=== PATIENT | female | born 1950 | race Two or more races ===

== ENCOUNTER 2019-07-05 19:45 | Inpatient (IN) | payer OTHER ==
[~2019-07-05] VITALS: Ht 162.6 cm; Wt 68.5 kg
[2019-07-05 20:00] VITALS: BP 128/87
[2019-07-05] MEDS ORDERED: dilTIAZem HCl 25mg/5ml Inj IVP ONE (20:30)
[2019-07-05 20:54] LABS: ANION GAP 10 mmol/L (5-15); BLOOD UREA NITROGEN 16 mg/dL (7-18); CALCIUM 8.3 MG/DL (8.5-10.1); CARBON DIOXIDE 22 MMOL/L (21-32); CHLORIDE 104 MMOL/L (98-107); POTASSIUM 4.2 MMOL/L (3.5-5.1); SODIUM 136 MMOL/L (136-145)
[2019-07-05 20:55] LABS: BASOPHILS % (AUTO) 1.5 % (0.0-2.0); EOSINOPHILS % (AUTO) 2.5 % (0.0-3.0); HEMATOCRIT 35.9 % (37.0-47.0); HEMOGLOBIN 11.7 G/DL (12.0-16.0); LYMPHOCYTES % (AUTO) 29.7 % (20.0-45.0); MEAN CORPUSCULAR VOLUME 90 FL (80-99); MONOCYTES % (AUTO) 14.9 % (1.0-10.0); NEUTROPHILS % (AUTO) 51.4 % (45.0-75.0); PLATELET COUNT 190 K/UL (150-450); RED BLOOD COUNT 3.98 M/UL (4.20-5.40); RED CELL DISTRIBUTION WIDTH 13.3 % (11.6-14.8); WHITE BLOOD COUNT 5.6 K/UL (4.8-10.8)
[2019-07-05 20:57] LABS: INR 1.1 (0.9-1.1)
[2019-07-05] MEDS ORDERED: Enoxaparin 80mg Inj SUBQ ONE (21:00)
[2019-07-05 21:09] LABS: ALANINE AMINOTRANSFERASE 39 U/L (12-78); ALBUMIN 3.5 G/DL (3.4-5.0); ALBUMIN/GLOBULIN RATIO 1.1 (1.0-2.7); ALKALINE PHOSPHATASE 99 U/L (46-116); ASPARTATE AMINO TRANSFERASE 37 U/L (15-37); BILIRUBIN,TOTAL 0.3 MG/DL (0.2-1.0); CKMB 1.4 NG/ML (0.0-3.6); CREATINE KINASE 122 U/L (26-308)
[2019-07-05 21:10] LABS: APPEARANCE,URINE CLEAR; BILIRUBIN, URINE NEGATIVE (NEGATIVE); COLOR,URINE PALE YELLOW; GLUCOSE, URINE (UA) NEGATIVE (NEGATIVE); KETONES,URINE NEGATIVE (NEGATIVE); LEUKOCYTE ESTERASE ,URINE 1+ (NEGATIVE); NITRITE,URINE NEGATIVE (NEGATIVE); PH,URINE 5 (4.5-8.0); PROTEIN,URINE NEGATIVE (NEGATIVE); UROBILINOGEN,URINE NORMAL MG/DL (0.0-1.0)
--- NOTE | 2019-07-05 21:58 | Emergency Room Report ---
History of Present Illness General Chief Complaint: Dyspnea/Respdistress Source: Patient Present Illness HPI Patient presents with complaints of palpitations and shortness of breath Patient reports that on Friday she initially felt a palpitation sensation over the past several days now she has started to feel more short of breath especially with any exertion Denies any pain with this denies any fevers denies any vomiting or diarrhea patient takes drops for her glaucoma otherwise no other medication Denies any recent travel denies any Back or flank pain Allergies: Coded Allergies: No Known Allergies (Unverified , 07/05/19) Patient History Past Medical History: see triage record Reviewed Nursing Documentation: PMH: Agreed; PSxH: Agreed Nursing Documentation-PMH Past Medical History: No History, Except For Review of Systems All Other Systems: negative except mentioned in HPI Physical Exam Vital Signs Date Time Temp Pulse Resp B/P (MAP) Pulse Ox O2 Delivery O2 Flow Rate FiO2 07/05/19 20:00 97.9 94 18 128/87 (101) 97 Room Air Sp02 EP Interpretation: reviewed, normal General Appearance: mild distress - There is mildly short of breath Head: normocephalic, atraumatic Eyes: bilateral eye PERRL, bilateral eye EOMI ENT: hearing grossly normal, normal pharynx, TMs + canals normal, uvula midline Neck: full range of motion, supple, no meningismus, no bony tend Respiratory: no rhonchi, no respiratory distress, no retraction, no accessory muscle use, crackles - Fine crackles bilaterally Cardiovascular #1: no edema, no gallop, no JVD, no murmur, tachycardia, irregularly irregular Gastrointestinal: normal bowel sounds, non tender, soft, no mass, no organomegaly, non-distended, no guarding, no hernia, no pulsatile mass, no rebound Genitourinary: no CVA tenderness Musculoskeletal: normal inspection Neurologic: motor strength/tone normal, 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, oriented x3 , sensory intact, responsive Psychiatric: normal inspection, mood/affect normal Skin: no rash Lymphatic: normal inspection, no adenopathy Procedures Critical Care Time Critical Care Time 50 minutes for multiple re-evaluations initial critical presentation concerning for cardiopulmonary arrest and possible not including any procedural time Medical Decision Making Diagnostic Impression: Primary Impression: New onset a-fib Additional Impressions: Atrial fibrillation with RVR CHF (congestive heart failure) ER Course Patient is a fairly complex patient with multiple differential to consideration including but not limited to cardiac cardiopulmonary and vascular emergencies found to have new onset A. fib RVR The initial onset of this appears to be over 24 to 48 hours old Patient does not meet criteria for acute cardioversion is further anticoagulated IV hydration is held secondary to appearance of congestion secondary to the event Troponin is negative patient is initiated on Cardizem drip and will require ICU admission Labs Test 07/05/19 20:24 07/05/19 20:30 White Blood Count 5.6 K/UL (4.8-10.8) Red Blood Count 3.98 M/UL (4.20-5.40) Hemoglobin 11.7 G/DL (12.0-16.0) Hematocrit 35.9 % (37.0-47.0) Mean Corpuscular Volume 90 FL (80-99) Mean Corpuscular Hemoglobin 29.5 PG (27.0-31.0) Mean Corpuscular Hemoglobin Concent 32.7 G/DL (32.0-36.0) Red Cell Distribution Width 13.3 % (11.6-14.8) Platelet Count 190 K/UL (150-450) Mean Platelet Volume 7.8 FL (6.5-10.1) Neutrophils (%) (Auto) 51.4 % (45.0-75.0) Lymphocytes (%) (Auto) 29.7 % (20.0-45.0) Monocytes (%) (Auto) 14.9 % (1.0-10.0) Eosinophils (%) (Auto) 2.5 % (0.0-3.0) Basophils (%) (Auto) 1.5 % (0.0-2.0) Prothrombin Time 11.3 SEC (9.30-11.50) Prothromb Time International Ratio 1.1 (0.9-1.1) Activated Partial Thromboplast Time 25 SEC (23-33) Sodium Level 136 MMOL/L (136-145) Potassium Level 4.2 MMOL/L (3.5-5.1) Chloride Level 104 MMOL/L (98-107) Carbon Dioxide Level 22 MMOL/L (21-32) Anion Gap 10 mmol/L (5-15) Blood Urea Nitrogen 16 mg/dL (7-18) Creatinine 1.0 MG/DL (0.55-1.30) Estimat Glomerular Filtration Rate 54.8 mL/min (>60) Glucose Level 101 MG/DL (74-106) Calcium Level 8.3 MG/DL (8.5-10.1) Total Bilirubin 0.3 MG/DL (0.2-1.0) Aspartate Amino Transf (AST/SGOT) 37 U/L (15-37) Alanine Aminotransferase (ALT/SGPT) 39 U/L (12-78) Alkaline Phosphatase 99 U/L (46-116) Total Creatine Kinase 122 U/L (26-308) Creatine Kinase MB 1.4 NG/ML (0.0-3.6) Creatine Kinase MB Relative Index 1.1 Troponin I 0.001 ng/mL (0.000-0.056) Pro-B-Type Natriuretic Peptide 3168 pg/mL (0-125) Total Protein 6.8 G/DL (6.4-8.2) Albumin 3.5 G/DL (3.4-5.0) Globulin 3.3 g/dL Albumin/Globulin Ratio 1.1 (1.0-2.7) Lipase 143 U/L (73-393) Thyroid Stimulating Hormone (TSH) 1.302 uiU/mL (0.358-3.740) Free Thyroxine 1.54 NG/DL (0.76-1.46) Urine Color Pale yellow Urine Appearance Clear Urine pH 5 (4.5-8.0) Urine Specific [place] 1.015 (1.005-1.035) Urine Protein Negative (NEGATIVE) Urine Glucose (UA) Negative (NEGATIVE) Urine Ketones Negative (NEGATIVE) Urine Blood Negative (NEGATIVE) Urine Nitrite Negative (NEGATIVE) Urine Bilirubin Negative (NEGATIVE) Urine Urobilinogen Normal MG/DL (0.0-1.0) Urine Leukocyte Esterase 1+ (NEGATIVE) Urine RBC 0 /HPF (0 - 2) Urine WBC 0-2 /HPF (0 - 2) Urine Squamous Epithelial Cells Occasional /LPF Urine Bacteria Occasional /HPF (NONE) Lactic Acid Level 1.60 mmol/L (0.4-2.0) EKG Diagnostic Results Rate: tachycardiac Rhythm: other - afib ST Segments: other - Nonspecific ST changes Rhythm Strip Diag. Results EP Interpretation: yes Rate: 122 Rhythm: other - A. fib RVR, nonspecific ST changes Chest X-Ray Diagnostic Results Chest X-Ray Diagnostic Results : Chest X-Ray Ordered: Yes # of Views/Limited/Complete: 1 View Indication: Shortness of Breath EP Interpretation: Yes Interpretation: no pneumothorax, other - Right-sided effusion, pulmonary congestion Impression: Other - Acute pulmonary congestion Electronically Signed by: Cooper Bailey DO Last Vital Signs Date Time Temp Pulse Resp B/P (MAP) Pulse Ox O2 Delivery O2 Flow Rate FiO2 07/05/19 21:27 111 102/72 07/05/19 20:00 97.9 18 97 Room Air Status: improved Disposition: ADMITTED INPATIENT Condition: Critical Referrals: [facility] (PCP) Cooper Bailey DO Jul 05, 2019 21:58
[2019-07-05 22:00] VITALS: BP 104/80
[2019-07-06] VITALS (62 sets, daily range): BP systolic 71–139; BP diastolic 45–97
[2019-07-06] MEDS ORDERED: dilTIAZem HCl 25mg/5ml Inj IVP ONE (00:30)
[2019-07-06] MEDS: Metoprolol Tartrate 50mg tab ORAL SCH ×3 (00:44→20:05)
[2019-07-06 07:07] LABS: BASOPHILS % (AUTO) 1.3 % (0.0-2.0); EOSINOPHILS % (AUTO) 3.8 % (0.0-3.0); HEMATOCRIT 35.2 % (37.0-47.0); HEMOGLOBIN 11.6 G/DL (12.0-16.0); LYMPHOCYTES % (AUTO) 31.3 % (20.0-45.0); MEAN CORPUSCULAR VOLUME 90 FL (80-99); MONOCYTES % (AUTO) 16.9 % (1.0-10.0); NEUTROPHILS % (AUTO) 46.7 % (45.0-75.0); PLATELET COUNT 185 K/UL (150-450); RED BLOOD COUNT 3.89 M/UL (4.20-5.40); RED CELL DISTRIBUTION WIDTH 13.4 % (11.6-14.8); WHITE BLOOD COUNT 4.4 K/UL (4.8-10.8)
[2019-07-06 07:27] LABS: ALANINE AMINOTRANSFERASE 36 U/L (12-78); ALBUMIN 3.3 G/DL (3.4-5.0); ALBUMIN/GLOBULIN RATIO 0.9 (1.0-2.7); ALKALINE PHOSPHATASE 102 U/L (46-116); ANION GAP 12 mmol/L (5-15); ASPARTATE AMINO TRANSFERASE 32 U/L (15-37); BILIRUBIN,TOTAL 0.5 MG/DL (0.2-1.0); BLOOD UREA NITROGEN 14 mg/dL (7-18); CALCIUM 8.3 MG/DL (8.5-10.1); CARBON DIOXIDE 23 MMOL/L (21-32); CHLORIDE 108 MMOL/L (98-107); CREATININE 0.8 MG/DL (0.55-1.30); POTASSIUM 3.8 MMOL/L (3.5-5.1); SODIUM 142 MMOL/L (136-145)
[2019-07-06] MEDS: Eliquis 5mg tablet ORAL SCH ×2 (09:09→17:34)
--- NOTE | 2019-07-06 10:40 | Diagnostic Imaging Report ---
Indication: Chest pain Technique: One view of the chest Comparison: none Findings: There is mild bilateral perihilar interstitial congestion. The heart is borderline enlarged. Atelectatic changes are seen at the lung bases. The pleural spaces are grossly clear Impression: Borderline cardiomegaly Bilateral interstitial congestion
[2019-07-06] MEDS: dilTIAZem HCl 60mg tab ORAL SCH ×3 (12:32→23:39)
[2019-07-06] MEDS: Furosemide 40mg tab ORAL SCH ×2 (12:32→20:05)
--- NOTE | 2019-07-06 12:54 | Cardiology Report ---
APPROVED REPORT EXAM: Two-dimensional and M-mode echocardiogram with Doppler and color Doppler. M-Mode DIMENSIONS IVSd0.9 (0.7-1.1cm)Left Atrium (MM)4.5 (1.6-4.0cm) LVDd3.4 (3.5-5.6cm)Aortic Root3.8 (2.0-3.7cm) PWd1.0 (0.7-1.1cm)Aortic Cusp Exc.1.7 (1.5-2.0cm) IVSs1.2 cm LVDs2.6 (2.5-4.0cm) PWs0.9 cm Technically difficult study due to poor acoustical windows. Study quality precludes accurate assessment of regional wall motion. Normal left ventricular chamber size. Mild global left ventrricular hypokinesis . Left ventricular ejection fraction estimated to be 45-50 %. No evidence of left ventricular hypertrophy. No evidence of pericardial effusion. Mild left atrial enlargement . Right cardiac chamber sizes are within normal limits. Focal aortic valve sclerosis with adequate cusp excursion. Thickened mitral valve leaflets with normal excursion. Mitral annulus and aortic root calcification. Normal pulmonic valve structure. Normal tricuspid valve structure. IVC dilated at 2.3 cm without physiologic collapse suggestive of increased RA pressure. A color flow and spectral Doppler study was performed and revealed: Mild aortic insufficiency. Moderate mitral regurgitation. Mitral inflow velocities indicates possible pseudo normalization pattern implying moderately elevated left atrial pressure (Grade II ) Moderate tricuspid regurgitation. Tricuspid systolic velocities suggests peak right ventricular systolic pressure of 50-55 mmHg,consistent with moderate pulmonary hypertension.
--- NOTE | 2019-07-06 13:05 | Cardiology Report ---
APPROVED REPORT EKG Measurement Heart [id number] Atrial fibrillation with rapid ventricular response Nonspecific T wave abnormality Abnormal ECG
--- NOTE | 2019-07-06 16:45 | History and Physical Report ---
DATE OF ADMISSION: 07/05/2019 HISTORY OF PRESENT ILLNESS: This is a 69-year-old female with no known history presented to the hospital with new-onset AFib. The patient reports sensations of palpitations in the last several days. The patient takes unknown eyedrops for glaucoma. She has no recent travel history. No chest pain. She denies any recent illnesses. ALLERGIES: None. PAST HISTORY: Glaucoma only. PREVIOUS MEDICATIONS: Medications for glaucoma, eye drops only. SURGERIES: None. REVIEW OF SYSTEMS: Denies any headaches, hematemesis, melena, or hematochezia. PHYSICAL EXAMINATION: GENERAL: Reveals a 69-year-old female. HEENT: Unremarkable. LUNGS: Clear breath sounds bilaterally. HEART: Normal heart sounds. ABDOMEN: Soft. EXTREMITIES: There is no appreciable edema. The patient has an irregular heart rate and rhythm. VITAL SIGNS: Blood pressure 120/80, heart rate is 94, respirations are 20, she is afebrile. IMAGING: X-ray chest was obtained, which shows bilateral pulmonary congestion and cardiomegaly. LABORATORY DATA: Lab testing shows hemoglobin 11.6, otherwise normal CBC. BMP notable for normal beta. Troponin 0.001. ProBNP 3168. IMPRESSION: 1. New-onset CHF. 2. New-onset rapid AFib. DISCUSSION: 1. Admit to the ICU. 2. The patient will need IV Cardizem, which has been started by Cardiology. 3. Cardiology consult appreciated. 4. The patient also needs diuresis and anticoagulation. 5. We will follow carefully. Rl Posey M.D. DR: CONNER JOB#: [id number] CC:
[2019-07-06] MEDS ORDERED: Amiodarone 900 MG in D5W 500ml 482 ML IV SCH (18:15)
[2019-07-06] MEDS ORDERED: Lisinopril 10mg tab ORAL SCH (21:15)
--- NOTE | 2019-07-06 22:00 | Progress Note ---
DATE: 07/06/2019 CARDIOLOGY PROGRESS NOTE SUBJECTIVE: The patient remains in the intensive care unit. She has no chest pain or shortness of breath. She remains in atrial fibrillation. This morning, her diltiazem drip was decreased to 1 mg/hour and her heart rate increased. The staff was made aware that her oral therapy should be advanced before they should initiate a taper of the drip and therapy was implemented as such. Echocardiogram revealed ejection fraction of about 45% with global hypokinesis and significant degenerative valve disease with regurgitation and pulmonary hypertension. PHYSICAL EXAMINATION: NECK: Jugular venous pressure is slightly elevated. LUNGS: With few rales. CARDIAC: Irregularly irregular. Normal S1 and decreased S2 with a 2/6 holosystolic apical murmur. ABDOMEN: Soft. EXTREMITIES: There is no edema. LABORATORY DATA: White count 4.4, hemoglobin 11.6. Potassium 3.8, BUN 14, creatinine 0.8. Albumin 3.3. IMPRESSION: 1. Paroxysmal atrial fibrillation with rapid ventricular response. 2. Valvular cardiomyopathy. 3. Acute on chronic systolic and diastolic congestive heart failure. PLAN: 1. Diuresis. 2. Start angiotensin-converting enzyme inhibitor. 3. Continue full anticoagulation. 4. Initiate amiodarone drip once ventricular rate is controlled in an attempt to cardiovert back to sinus rhythm. Andreas Ovalles M.D. DR: ABI JOB#: [id number] CC:
--- NOTE | 2019-07-06 23:00 | Consultation ---
DATE OF CONSULTATION: 07/05/2019 CARDIOLOGY CONSULTATION CONSULTING PHYSICIAN: Andreas Ovalles M.D. REFERRING PHYSICIAN: Rl Posey M.D. REASON FOR CONSULTATION: Rapid atrial fibrillation. HISTORY OF PRESENT ILLNESS: This 69-year-old female with no prior cardiac history that she is aware of, presented to the emergency room with several days of palpitations and progressive shortness of breath. No chest pain, no recent illnesses, and no new medications noted. She has not had any recent travel and has not had any other changes in her lifestyle during this period. In the emergency room, she was noted to have rapid atrial fibrillation. The case was discussed with the emergency room physician following my consultation and the patient was started on medications for rate control and given anticoagulants for cardioembolic prophylaxis. Admission to the intensive care unit is planned. PAST MEDICAL HISTORY: Glaucoma. MEDICATIONS: Include eye drops. ALLERGIES: None. FAMILY HISTORY: Noncontributory. SOCIAL HISTORY: Negative for smoking, alcohol, or substance abuse. REVIEW OF SYSTEMS: A 10-point review of systems performed. All systems negative other than data outlined above. PHYSICAL EXAMINATION: GENERAL: Appears well developed and well nourished, in no distress. VITAL SIGNS: Blood pressure 135/84, pulse 142, and respirations 20. Afebrile. HEENT: Conjunctivae pink. Oropharynx clear. NECK: Supple. Jugular venous pressure is slightly elevated. LUNGS: Few rales bilaterally. CARDIAC: Irregularly irregular rhythm with rapid rate. Diminished S1, normal S2. 2/6 holosystolic apical murmur. ABDOMEN: Soft. EXTREMITIES: No edema. NEUROLOGIC: Nonfocal. LABORATORY DATA: Troponin is negative. Pro-natriuretic peptide is over 3000. Hemoglobin 11.6. Chemistry panel within normal limits. Chest x-ray, pulmonary venous congestion. EKG revealed atrial fibrillation, rapid ventricular response. Nonspecific ST-T wave change. IMPRESSION: 1. New-onset atrial fibrillation with rapid ventricular response. 2. Acute diastolic and possibly systolic congestive heart failure. 3. History of glaucoma. PLAN: 1. ICU monitoring. 2. Intravenous diltiazem and oral beta-hillary for rate control. 3. Full anticoagulation with apixaban for cardioembolic prophylaxis. 4. Once rate control is achieved, diuresis can be initiated. 5. Echocardiogram has been requested. 6. Followup troponin level will be obtained. 7. Further recommendations and care plan will follow once rate control is achieved and echocardiogram is reviewed. Andreas Ovalles M.D. DR: LAWSON JOB#: [id number] CC:
[2019-07-07] VITALS (35 sets, daily range): BP systolic 80–129; BP diastolic 45–81
[2019-07-07] MEDS: dilTIAZem HCl 60mg tab ORAL SCH (05:15)
[2019-07-07 05:51] LABS: BASOPHILS % (AUTO) 0.7 % (0.0-2.0); EOSINOPHILS % (AUTO) 2.2 % (0.0-3.0); HEMATOCRIT 35.5 % (37.0-47.0); HEMOGLOBIN 11.8 G/DL (12.0-16.0); LYMPHOCYTES % (AUTO) 23.5 % (20.0-45.0); MEAN CORPUSCULAR VOLUME 90 FL (80-99); MONOCYTES % (AUTO) 16.3 % (1.0-10.0); NEUTROPHILS % (AUTO) 57.3 % (45.0-75.0); PLATELET COUNT 186 K/UL (150-450); RED BLOOD COUNT 3.95 M/UL (4.20-5.40); RED CELL DISTRIBUTION WIDTH 13.3 % (11.6-14.8); WHITE BLOOD COUNT 4.9 K/UL (4.8-10.8)
[2019-07-07 06:14] LABS: ANION GAP 11 mmol/L (5-15); BLOOD UREA NITROGEN 15 mg/dL (7-18); CALCIUM 7.9 MG/DL (8.5-10.1); CARBON DIOXIDE 24 MMOL/L (21-32); CHLORIDE 101 MMOL/L (98-107); POTASSIUM 3.7 MMOL/L (3.5-5.1); SODIUM 136 MMOL/L (136-145)
[2019-07-07] MEDS: Eliquis 5mg tablet ORAL SCH ×2 (08:44→17:30)
[2019-07-07] MEDS: Metoprolol Tartrate 50mg tab ORAL SCH (09:00)
[2019-07-07] MEDS ORDERED: Furosemide 40mg tab ORAL SCH (09:00)
[2019-07-07] MEDS ORDERED: Lisinopril 10mg tab ORAL SCH (09:00)
--- NOTE | 2019-07-07 09:26 | Pulmonology Progress Note ---
Assessment/Plan Assessment/Plan IMPRESSION: 1. New-onset CHF. 2. New-onset rapid AFib. DISCUSSION: 1. Rate control 2. IV Cardizem, which has been started by Cardiology. 3. Cardiology consult appreciated. 4. The patient also needs diuresis and anticoagulation. 5. I will follow carefully. Rl Posey M.D. Subjective Interval Events: None new Constitutional: Reports: no symptoms HEENT: Repors: no symptoms Respiratory: Reports: no symptoms Cardiovascular: Reports: no symptoms Gastrointestinal/Abdominal: Reports: no symptoms Allergies: Coded Allergies: No Known Allergies (Unverified , 07/05/19) Objective Last 24 Hour Vital Signs Date Time Temp Pulse Resp B/P (MAP) Pulse Ox O2 Delivery O2 Flow Rate FiO2 07/07/19 09:00 86/52 07/07/19 09:00 57 86/52 07/07/19 08:00 97.9 71 12 96/57 (70) 96 07/07/19 07:30 84 15 111/72 (85) 98 07/07/19 07:00 62 17 110/71 (84) 97 07/07/19 06:30 83 19 111/68 (82) 95 07/07/19 06:00 85 13 120/75 (90) 96 07/07/19 05:30 87 21 126/74 (91) 96 07/07/19 05:15 86 112/75 07/07/19 05:00 86 17 112/75 (87) 97 07/07/19 04:30 83 17 113/72 (86) 98 07/07/19 04:00 Room Air 07/07/19 04:00 98.7 79 19 118/75 (89) 97 07/07/19 04:00 75 07/07/19 03:30 86 13 84/64 (71) 98 07/07/19 03:00 88 19 104/70 (81) 96 07/07/19 02:30 76 19 108/73 (85) 97 07/07/19 02:00 81 14 108/77 (87) 95 07/07/19 01:30 102 14 98/65 (76) 96 07/07/19 01:00 88 18 96/64 (75) 99 07/07/19 00:30 89 18 107/77 (87) 97 07/07/19 00:00 Room Air 07/07/19 00:00 79 07/07/19 00:00 99.0 91 24 129/74 (92) 98 07/06/19 23:39 77 130/79 07/06/19 23:30 89 21 86/61 (69) 97 07/06/19 23:00 81 19 124/80 (95) 96 07/06/19 22:30 77 17 122/75 (91) 96 07/06/19 22:24 130/79 07/06/19 22:00 77 15 126/77 (93) 96 07/06/19 21:30 81 16 125/68 (87) 99 07/06/19 21:00 81 23 114/69 (84) 95 07/06/19 20:30 87 16 90/70 (77) 97 07/06/19 20:05 86 130/79 07/06/19 20:00 81 07/06/19 20:00 Room Air 07/06/19 20:00 98.6 91 24 139/92 (108) 98 07/06/19 19:30 82 18 134/97 (109) 97 07/06/19 19:00 86 24 130/79 (96) 96 07/06/19 18:00 105 23 136/91 (106) 98 07/06/19 17:34 105 134/79 07/06/19 17:30 95 29 134/79 (97) 97 07/06/19 17:00 85 17 129/87 (101) 97 07/06/19 16:30 90 21 124/74 (91) 97 07/06/19 16:15 82 17 111/74 (86) 96 07/06/19 16:00 Room Air 07/06/19 16:00 98.2 82 17 111/74 (86) 96 07/06/19 16:00 86 07/06/19 15:45 77 24 116/73 (87) 96 07/06/19 15:30 73 14 76/56 (63) 97 07/06/19 15:15 80 17 74/51 (59) 95 07/06/19 15:00 85 17 71/57 (62) 95 07/06/19 14:45 81 19 111/69 (83) 98 07/06/19 14:30 85 16 77/45 (56) 95 07/06/19 14:14 83 20 80/53 (62) 96 07/06/19 14:10 88 17 75/49 (58) 93 07/06/19 14:05 83 16 78/55 (63) 93 07/06/19 14:00 83 18 80/52 (61) 93 07/06/19 13:45 83 18 80/52 (61) 93 07/06/19 13:30 105 20 99/74 (82) 84 07/06/19 13:15 113 21 110/90 (97) 98 07/06/19 13:00 112 21 88/46 (60) 96 07/06/19 12:45 113 21 110/90 (97) 98 07/06/19 12:32 108 110/90 07/06/19 12:30 113 21 110/90 (97) 98 07/06/19 12:15 103 24 95/60 (72) 96 07/06/19 12:00 98.2 103 24 95/60 (72) 96 07/06/19 12:00 114 07/06/19 12:00 Room Air 07/06/19 11:45 116 25 104/86 (92) 96 07/06/19 11:30 116 25 104/86 (92) 96 07/06/19 11:15 109 19 103/73 (83) 97 07/06/19 11:00 112 22 89/61 (70) 98 07/06/19 10:45 110 19 90/62 (71) 95 07/06/19 10:30 110 19 90/62 (71) 95 07/06/19 10:00 110 21 109/66 (80) 98 07/06/19 09:30 113 21 105/80 (88) 97 Intake and Output 07/06/19 07/07/19 19:00 07:00 Intake Total 612.75 ml 283.27 ml Output Total 1200 ml 1400 ml Balance -587.25 ml -1116.73 ml Intake Oral 600 ml IV Total 12.75 ml 283.27 ml Output Urine Total 1200 ml 1400 ml # Voids 3 2 General Appearance: no acute distress HEENT: normocephalic Respiratory/Chest: chest wall non-tender, decreased breath sounds Cardiovascular: normal peripheral pulses, regularly irregular Abdomen: normal bowel sounds Microbiology Date/Time Source Procedure Growth Status 07/05/19 20:30 Blood Blood Culture - Preliminary NO GROWTH AFTER 24 HOURS Resulted 07/05/19 20:15 Blood Blood Culture - Preliminary NO GROWTH AFTER 24 HOURS Resulted Laboratory Tests 07/07/19 03:20: White Blood Count 4.9, Red Blood Count 3.95L, Hemoglobin 11.8L, Hematocrit 35.5L , Mean Corpuscular Volume 90, Mean Corpuscular Hemoglobin 29.9, Mean Corpuscular Hemoglobin Concent 33.3, Red Cell Distribution Width 13.3, Platelet Count 186, Mean Platelet Volume 7.6, Neutrophils (%) (Auto) 57.3, Lymphocytes (% ) (Auto) 23.5, Monocytes (%) (Auto) 16.3H, Eosinophils (%) (Auto) 2.2, Basophils (%) (Auto) 0.7, Sodium Level 136, Potassium Level 3.7, Chloride Level 101, Carbon Dioxide Level 24, Anion Gap 11, Blood Urea Nitrogen 15, Creatinine 1.0, Estimat Glomerular Filtration Rate 54.8, Glucose Level 98, Calcium Level 7.9L Current Medications Medications (Trade) Dose Ordered Sig/Michelle Route PRN Reason Start Time Stop Time Status Last Admin Dose Admin Amiodarone HCl 900 mg/Dextrose 500 ml @ 0 mls/hr Q24H IV 07/06/19 18:15 07/07/19 18:14 07/06/19 19:04 Apixaban (Eliquis) 5 mg BID ORAL 07/06/19 09:00 08/05/19 08:59 07/07/19 08:44 Diltiazem HCl (Cardizem) 60 mg EVERY 6 HOURS ORAL 07/06/19 12:00 08/05/19 11:59 07/07/19 05:15 Furosemide (Lasix) 40 mg DAILY ORAL 07/07/19 09:00 08/06/19 08:59 07/07/19 08:44 Lisinopril (ZestriL) 10 mg DAILY ORAL 07/07/19 09:00 08/06/19 08:59 Metoprolol Tartrate (Lopressor) 50 mg Q12HR ORAL 07/06/19 00:30 08/05/19 00:29 07/06/19 20:05 Rl Posey MD Jul 07, 2019 09:26
--- NOTE | 2019-07-07 10:15 | Diagnostic Imaging Report ---
APPROVED REPORT CPT Code: 32978 Present Symptoms Comments: DYSPNEA Imaging reveals a patent deep venous system bilaterally. There is no evidence of thrombus within the common femoral, superficial femoral, popliteal or tibial segments. The greater saphenous veins are within normal limits. Doppler indicates normal spontaneous flow within these segments.
[2019-07-07] MEDS ORDERED: dilTIAZem HCl 60mg tab ORAL SCH (12:00)
[2019-07-07] MEDS ORDERED: Amiodarone 200mg tab ORAL SCH (13:45)
[2019-07-07] MEDS ORDERED: dilTIAZem HCl CD 180mg cap ORAL SCH (13:45)
[2019-07-07] MEDS: Amiodarone 200mg tab ORAL SCH (20:39)
[2019-07-07] MEDS ORDERED: Metoprolol Tartrate 50mg tab ORAL SCH (21:00)
[2019-07-08] VITALS: BP 96/58
--- NOTE | 2019-07-08 02:15 | Progress Note ---
DATE: 07/07/2019 CARDIOLOGY PROGRESS NOTE SUBJECTIVE: The patient remains in the intensive care unit. She was converted with intravenous amiodarone overnight to sinus rhythm. She has a few atrial ectopic beats and some episodes of bradycardia. Blood pressure in the low 100 systolic range. The patient remains asymptomatic with regard to chest pain and shortness of breath or dizziness. OBJECTIVE: LUNGS: Clear. CARDIAC: Regular rhythm and rate. Normal S1, S2. A 2/6 systolic murmur at apex. ABDOMEN: Soft. EXTREMITIES: No edema. LABORATORY DATA: Cultures of the blood are negative. Hemoglobin 11.8. White count 4.9. Sodium 136, potassium 3.7, bicarb 24, BUN 15, and creatinine 1. IMPRESSION: 1. Paroxysmal atrial fibrillation, now in sinus rhythm. 2. Valvular cardiomyopathy, now started on afterload reduction. 3. Acute on chronic diastolic congestive heart failure, now mostly compensated. 4. Bradyarrhythmia now due to medications. PLAN: 1. Maximize anti-failure regimen. 2. Maintenance diuretic dose. 3. Continue anticoagulation. 4. Amiodarone with slow loading dose to maintain sinus rhythm. 5. Discontinue beta-hillary in favor of diltiazem alone at this time. 6. We will need to finalize discharge regimen. May be able to avoid anticoagulation if maintaining sinus rhythm with current antiarrhythmic regimen. Andreas Ovalles M.D. DR: MEGHAN JOB#: [id number] CC:
[2019-07-08 09:00] VITALS: BP 96/58
[2019-07-08] MEDS ORDERED: Lisinopril 10mg tab ORAL SCH (09:00)
[2019-07-08] MEDS ORDERED: Eliquis 5mg tablet ORAL SCH (09:00)
[2019-07-08] MEDS ORDERED: dilTIAZem HCl CD 180mg cap ORAL SCH ×2 (09:00)
[2019-07-08] MEDS ORDERED: Furosemide 40mg tab ORAL SCH (09:00)
[2019-07-08] MEDS: Amiodarone 200mg tab ORAL SCH (09:20)
--- NOTE | 2019-07-08 13:15 | Pulmonology Progress Note ---
Assessment/Plan Assessment/Plan IMPRESSION: 1. New-onset CHF. 2. New-onset rapid AFib. DISCUSSION: 1. Rate control 2. Now on PO amiodarone 3. Cardiology consult appreciated. 4. Dc planning for home Rl Posey M.D. Subjective Interval Events: None new; now in NSR Constitutional: Reports: no symptoms HEENT: Repors: no symptoms Respiratory: Reports: no symptoms Cardiovascular: Reports: no symptoms Gastrointestinal/Abdominal: Reports: no symptoms Allergies: Coded Allergies: No Known Allergies (Unverified , 07/05/19) Objective Last 24 Hour Vital Signs Date Time Temp Pulse Resp B/P (MAP) Pulse Ox O2 Delivery O2 Flow Rate FiO2 07/08/19 09:00 96/58 07/08/19 08:49 99 Nasal Cannula 2.0 28 07/08/19 08:00 Room Air 07/08/19 08:00 78 07/08/19 04:00 Room Air 07/08/19 03:26 66 07/08/19 00:27 97 Nasal Cannula 2.0 28 07/08/19 00:00 61 07/08/19 00:00 98.0 60 20 96/58 (71) 99 07/08/19 00:00 Room Air 07/07/19 20:00 Room Air 07/07/19 20:00 98.2 63 19 112/63 (79) 99 07/07/19 20:00 63 07/07/19 19:00 64 15 104/52 (69) 07/07/19 18:00 67 18 110/71 (84) 07/07/19 17:00 Room Air 07/07/19 17:00 65 19 100/62 (75) 96 07/07/19 16:00 61 07/07/19 16:00 98.2 63 17 103/64 (77) 97 07/07/19 15:00 60 19 85/51 (62) 95 07/07/19 14:00 57 15 99/45 (63) 96 07/07/19 13:30 62 17 95/55 (68) 95 Intake and Output 07/07/19 07/08/19 19:00 07:00 Intake Total 516.64 ml Balance 516.64 ml Intake Oral 450 ml IV Total 66.64 ml # Voids 4 2 # Bowel Movements 2 General Appearance: no acute distress HEENT: normocephalic Respiratory/Chest: chest wall non-tender, lungs clear Cardiovascular: normal peripheral pulses Abdomen: normal bowel sounds Microbiology Date/Time Source Procedure Growth Status 07/05/19 20:30 Blood Blood Culture - Preliminary NO GROWTH AFTER 48 HOURS Resulted 07/05/19 20:15 Blood Blood Culture - Preliminary NO GROWTH AFTER 48 HOURS Resulted 07/05/19 23:30 Nasal Nares MRSA Culture - Final NO METHICILLIN RESISTANT STAPH AUREUS... Complete 07/05/19 23:30 Rectum - Final NO CARBAPENEM-RESISTANT ENTEROBACTERI... Complete 07/05/19 23:30 Rectum VRE Culture - Final NO VANCOMYCIN RESISTANT ENTEROCOCCUS ... Complete Current Medications Medications (Trade) Dose Ordered Sig/Michelle Route PRN Reason Start Time Stop Time Status Last Admin Dose Admin Amiodarone HCl (Cordarone) 200 mg EVERY 12 HOURS ORAL 07/07/19 21:00 08/06/19 13:44 07/08/19 09:20 Aspirin (Ecotrin) 81 mg DAILY ORAL 07/09/19 09:00 08/08/19 08:59 UNV Lisinopril (ZestriL) 10 mg DAILY ORAL 07/08/19 09:00 08/06/19 08:59 Metoprolol Succinate (Toprol XL) 25 mg DAILY ORAL 07/09/19 09:00 08/08/19 08:59 Rl Posey MD Jul 08, 2019 13:15
[2019-07-08] MEDS ORDERED: NS 275ml ONE (18:09)
[2019-07-08] MEDS ORDERED: Sterile Water Irrig 1000ml IRRIG ONE (18:09)
--- NOTE | 2019-07-09 05:30 | Progress Note ---
DATE: 07/08/2019 CARDIOLOGY PROGRESS NOTE SUBJECTIVE: The patient remains in sinus rhythm. Blood pressure is on the lower side. The patient has been diuresed. She has no chest pain. No dizziness. No shortness of breath. PHYSICAL EXAMINATION: VITAL SIGNS: Blood pressure 96/58, pulse 70, and respiratory rate 18. GENERAL: Lying flat. LUNGS: Clear. CARDIAC: Regular. Normal S1 and S2. A 1/6 systolic murmur at apex. EXTREMITIES: No edema. IMPRESSION: 1. Paroxysmal atrial fibrillation. 2. Acute on chronic systolic and diastolic congestive heart failure, now compensated. 3. Valvular cardiomyopathy. PLAN: Continue amiodarone maintenance dose to maintain sinus rhythm, no anticoagulation can be reassessed for recurrence, and maintains anti-failure regimen in place as well. Reviewed with the patient prescription dispense. Outpatient follow up with PMD discussed. Andreas Ovalles M.D. DR: RAE JOB#: [id number] CC:
[2019-07-09] MEDS ORDERED: Aspirin EC 81mg tab ORAL SCH (09:00)
[2019-07-09] MEDS ORDERED: Metoprolol Succinate XL 25mg tab ORAL SCH (09:00)
--- NOTE | 2019-07-09 14:06 | Discharge Summary ---
Discharge Summary Discharge Summary _ DATE OF ADMISSION: 07/05/2019 DATE OF DISCHARGE: 07/08/2019 DISCHARGED BY: Dr. Posey REASON FOR ADMISSION: 69 years old female with no significant past medical history, presented to the hospital with sensation of palpitations for the last several days. Patient was taking unknown eyedrops for glaucoma. No chest pain . No recent illness . No recent travel history . Upon evaluation in emergency department laboratory work-up revealed no leukocytosis, hemoglobin 11.7 , hematocrit 35.9 , platelet count was 190. INR 1.1. Stable electrolytes and renal parameters. Glucose 101. Stable LFT. Troponin negative. pro BNP 3168. EKG revealed atrial fibrillation with rapid ventricular response. TSH within normal limits. Urinalysis revealed no evidence of urinary tract infection. Lactic acid 1.6. Patient did not meet criteria for acute cardioversion. Patient started on Cardizem drip and admitted to ICU CONSULTANTS: exhibit designer HOSPITAL COURSE: Patient initially admitted to ICU . Patient started on intravenous Cardizem and oral beta-hillary for rate control. Full anticoagulation with apixaban for cardioembolic prophylaxis initiated. Echocardiogram demonstrated mild global left ventricular hypokinesis with left ventricular ejection fraction estimated to be 45 to 50%. No evidence of left ventricular hypertrophy. No evidence of pericardial effusion. Moderate mitral regurgitation. Moderately elevated left atrial pressure grade 2. Moderate tricuspid regurgitation. Right ventricular systolic pressure of 50-55 consistent with moderate pulmonary hypertension. Venous duplex bilateral lower extremity revealed no evidence of acute DVT. Diuresis provided with close monitoring of volumes and cardiorenal parameters. Guideline directed medical therapy for congestive heart failure was maximized. Amiodarone drip was initiated after ventricular rate was controlled in attempt to cardiovert back to sinus rhythm. Patient converted to sinus rhythm. Patient was subsequently transitioned to maintenance diuretic dose. Durable Medical Equipment Repairer recommended continue amiodarone maintenance dose to maintain sinus rhythm. No anticoagulation at this time. Patient need to be reassessed for reoccurrence. Patient to continue with present anti-failure regimen , compliance was reinforced. All prescriptions were reviewed with the patient. Patient clinically stabilized and was ready for discharge home. Outpatient follow-up with primary care provider with referral to insurance approved exhibit designer. FINAL DIAGNOSES: New onset of atrial fibrillation with rapid ventricular response Valvular cardiomyopathy New onset of congestive heart failure Acute on chronic systolic and diastolic congestive heart failure History of glaucoma DISCHARGE MEDICATIONS: List of medication was sent with patient DISCHARGE INSTRUCTIONS: Follow-up with the primary care provider in 1 week with referral to insurance approved exhibit designer I have been assigned to dictate discharge summary for this account. I was not involved in the patient's management. Erica Duncan NP Jul 09, 2019 14:06
== END 2019-07-08 18:10 | disposition home or self-care (01) | DRG 308 ==
LOC: EMR 20:25 → ICU 21:22 → EDBEDREQ 22:42 → 2W 07-07 20:03
DX: I48.0 Paroxysmal atrial fibrillation (principal); I50.41 Acute combined systolic (congestive) and diastolic (congestive) heart failure; I42.8 Other cardiomyopathies; H40.9 Unspecified glaucoma; I34.0 Nonrheumatic mitral (valve) insufficiency; I36.1 Nonrheumatic tricuspid (valve) insufficiency; I27.20 Pulmonary hypertension, unspecified
CPT/HCPCS: 36415; 71045; 80048; 80053; 81003; 82550; 82553; 83605; 83690; 83880; 84439; 84443; 84481; 84484; 85025; 85362; 85610; 85730; 87040; 87081; 93005; 93306; 93970; 96372; 96374; 96375; 99291; J8499